=== PATIENT | male | born 2000 | race Caucasian/White ===

== ENCOUNTER 2024-04-06 23:13 | Emergency (ER) | payer SELFPAY ==
[2024-04-06 23:23] VITALS: BP 166/95; PULSE 99; RESP 18; TEMP 98.4; BMI 27.8
== END 2024-04-07 00:17 | disposition home or self-care (01) ==
LOC: FER 23:13
DX: F10.920 Alcohol use, unspecified with intoxication, uncomplicated (principal); Y90.9 Presence of alcohol in blood, level not specified
CPT/HCPCS: 99283-25